=== PATIENT | male | born 1960 | race Caucasian/White ===

== ENCOUNTER 2023-06-20 06:34 | Day surgery (SDC) | payer OTHER ==
[2023-06-14 16:00] LABS: BASOPHILS % (AUTO) 0.4 % (0-1); EOSINOPHILS % (AUTO) 0.3 % (0-6); LYMPHOCYTES # (AUTO) 2.1 X10'3 (1.1-4.8); LYMPHOCYTES % (AUTO) 18.3 % (21-51); MEAN CORPUSCULAR HEMOGLOBIN 28.4 PG (27.0-31.0); MEAN CORPUSCULAR HGB CONC 32.8 g/dL (33.0-36.5); MEAN CORPUSCULAR VOLUME 86.8 FL (78-98); MEAN PLATELET VOLUME 6.9 FL (7.4-10.4); MONOCYTES # (AUTO) 0.8 X10'3 (0-0.9); MONOCYTES % (AUTO) 7.2 % (2-12); NEUTROPHILS # (AUTO) 8.6 X10'3 (1.8-7.7); NEUTROPHILS % (AUTO) 73.8 % (42-75); PRE OP HEMATOCRIT 43.8 % (42.0-52.0); PRE OP HEMOGLOBIN 14.4 g/dL (14.0-17.9); PRE OP PLATELET COUNT 239 X10'3 (140-440); PRE OP WHITE BLOOD COUNT 11.6 10'3 (4.8-10.8); RED BLOOD COUNT 5.05 X10'6 (4.70-6.10)
[2023-06-14 16:31] LABS: ALBUMIN 4.3 G/DL (3.4-5.0); ALBUMIN/GLOBULIN RATIO 1.2 (1.1-1.5); ALKALINE PHOSPHATASE 110 IU/L (46-116); BLOOD UREA NITROGEN 17 MG/DL (7-18); BUN/CREATININE RATIO 13.5 (10.0-20.0); CALCIUM 9.4 MG/DL (8.5-10.1); CHLORIDE 102 MMOL/L (99-107); CREATININE 1.26 MG/DL (0.60-1.10); PRE OP ALT 54 U/L (30-65); PRE OP ANION GAP 14 (8-16); PRE OP AST 41 U/L (10-37); PRE OP BILIRUB, TOTAL 0.6 MG/DL (0.0-1.0); PRE OP GLUCOSE 125 MG/DL (70-104); PRE OP POTASSIUM 3.6 MMOL/L (3.4-5.1); PRE OP SODIUM 142 MMOL/L (135-145); TOTAL CARBON DIOXIDE 26.4 MMOL/L (24-32); TOTAL PROTEIN 7.9 G/DL (6.4-8.2); eGFR 58 ML/MIN
[2023-06-20] VITALS (8 sets, daily range): BP systolic 99–127; BP diastolic 54–90; PULSE 72–82; RESP 12–17; TEMP 97.3; O2SAT 93–99
[~2023-06-20] VITALS: Ht 172.7 cm; Wt 83.0 kg
[~2023-06-20 06:34] MED LIST: AMLO2.5T5 PO; ATOR10TA70 PO; LISI20TA28 PO; TRAZ-251 PO; cefazolin 2gm/D5W 100mL 100 ML IV ONE; famotidine 20mg tablet PO ONE; ringers solution, lacted 1,000 ML IV SCH
[2023-06-20] MEDS ORDERED: tamsulosin 0.4mg capsule PO ONE (07:00)
[2023-06-20] MEDS ORDERED: fentaNYL/PF 50MCG/1 ML 2ML syringe ONE (07:50)
[2023-06-20] MEDS ORDERED: midazolam 1 mg/ML 2ml injection ONE ×2 (07:51)
[2023-06-20] MEDS ORDERED: LIDOcaine 1% 30ml preserv. free vial ONE (07:58)
[2023-06-20] MEDS ORDERED: BUPIVAcaine/PF 2.5mg/ml (0.25%) 10ml vial ONE (07:58)
[2023-06-20] MEDS ORDERED: proCHLORperazine 10 MG/2 ml inj IV PRN (08:00)
[2023-06-20] MEDS ORDERED: meperidine/PF 25mg/ml syringe IV PRN ×3 (08:00)
[2023-06-20] MEDS ORDERED: ringers solution, lacted 1,000 ML IV SCH (08:00)
[2023-06-20] MEDS ORDERED: morphine 4 MG/ML inj SYRINge IV PRN (08:00)
[2023-06-20] MEDS ORDERED: ondansetron/PF 4mg/2ml inj IV PRN (08:00)
[2023-06-20] MEDS ORDERED: morphine 2 MG/ML inj. syringe IV PRN (08:00)
[2023-06-20] MEDS ORDERED: propofol inj 20 ML IV ONE (08:10)
[2023-06-20] MEDS ORDERED: sevoflurane 250ml liquid IH ONE (08:11)
[2023-06-20] MEDS ORDERED: rocuronium 10mg/ml inj IV ONE (08:12)
[2023-06-20] MEDS ORDERED: dexamethasone sod phosphate 4mg/ml inj. ONE (08:14)
[2023-06-20] MEDS ORDERED: LIDOcaine 1% 30ml preserv. free vial IJ ONE (09:03)
[2023-06-20] MEDS ORDERED: BUPIVAcaine/PF 2.5mg/ml (0.25%) 10ml vial IJ ONE (09:03)
[2023-06-20] MEDS ORDERED: ondansetron/PF 4mg/2ml inj ONE (09:40)
[2023-06-20] MEDS ORDERED: acetaminophen 1,000mg/100ml IV 100 ML IV ONE (09:41)
[2023-06-20] MEDS ORDERED: sugammadex 200mg/2ml injection IV ONE (09:49)
[2023-06-20] MEDS ORDERED: HYDROcodone/acetaminophen 5mg/325mg tablet PO PRN (10:20)
== END 2023-06-20 11:02 | disposition home or self-care (01) ==
LOC: PAS 06:34
PROVIDERS: ATTEND Surgery
DX: K40.20 Bilateral inguinal hernia, without obstruction or gangrene, not specified as recurrent (principal); K42.9 Umbilical hernia without obstruction or gangrene; D17.6 Benign lipomatous neoplasm of spermatic cord; I10 Essential (primary) hypertension; E78.5 Hyperlipidemia, unspecified; Z72.89 Other problems related to lifestyle; Z79.899 Other long term (current) drug therapy; Z98.890 Other specified postprocedural states
CPT/HCPCS: 36415; 49591; 49650; 80053; 82948; 85025; 93005; C1781; J0131; J0690; J1100; J2250; J2405; J2704; J3010; J3490; J7030; J7120; S2900; Z7506; Z7508; Z7512; A4215; A4618

== ENCOUNTER 2024-03-27 08:22 | Outpatient (CLI) | payer BC ==
[~2024-03-27 08:22] MED LIST changes: -cefazolin 2gm/D5W 100mL 100 ML IV ONE; -famotidine 20mg tablet PO ONE; -ringers solution, lacted 1,000 ML IV SCH
[2024-03-27 09:05] LABS: BASOPHILS % (AUTO) 0.7 % (0-1); EOSINOPHILS # (AUTO) 0.1 X10'3 (0-0.9); EOSINOPHILS % (AUTO) 2.3 % (0-6); HEMATOCRIT 41.4 % (42.0-52.0); HEMOGLOBIN 13.4 g/dl (14.0-17.9); LYMPHOCYTES # (AUTO) 1.8 X10'3 (1.1-4.8); LYMPHOCYTES % (AUTO) 27.6 % (21-51); MEAN CORPUSCULAR HEMOGLOBIN 29.1 PG (27.0-31.0); MEAN CORPUSCULAR HGB CONC 32.3 g/dL (33.0-36.5); MEAN CORPUSCULAR VOLUME 90.1 FL (78-98); MEAN PLATELET VOLUME 7.1 FL (7.4-10.4); MONOCYTES # (AUTO) 0.4 X10'3 (0-0.9); MONOCYTES % (AUTO) 6.1 % (2-12); NEUTROPHILS # (AUTO) 4.1 X10'3 (1.8-7.7); NEUTROPHILS % (AUTO) 63.3 % (42-75); PLATELET COUNT 244 X10'3 (140-440); RED CELL DISTRIBUTION WIDTH 13.7 % (11.5-14.5); WHITE BLOOD COUNT 6.5 X10'3 (4.5-11.0)
[2024-03-27 09:32] LABS: ALANINE AMINOTRANSFERASE 55 U/L (12-78); ALBUMIN 3.6 G/DL (3.4-5.0); ALBUMIN/GLOBULIN RATIO 1.2 (1.1-1.5); ALKALINE PHOSPHATASE 107 IU/L (46-116); ASPARTATE AMINO TRANSFERASE 38 U/L (10-37); BILIRUBIN,TOTAL 0.4 MG/DL (0.1-1.0); BLOOD UREA NITROGEN 11 MG/DL (7-18); BUN/CREATININE RATIO 11.1 (10.0-20.0); CALCIUM 8.7 MG/DL (8.5-10.1); CHOL/HDL RATIO 3.2 (0.00-4.99); CHOLESTEROL 203 MG/DL (0-200); CREATININE 0.99 MG/DL (0.60-1.10); GLUCOSE 117 MG/DL (70-104); HDL CHOLESTEROL 64 MG/DL (35-60); LDL CHOLESTEROL 102 MG/DL (50-100); TOTAL CARBON DIOXIDE 27.1 MMOL/L (24-32); TOTAL PROTEIN 6.7 G/DL (6.4-8.2); TRIGLYCERIDES 176 MG/DL (20-135); eGFR 77 ML/MIN
[2024-03-27] MEDS ORDERED: iohexol 300mg/ml 100ml inj. ONE (09:45)
[2024-03-27 10:32] LABS: SODIUM 141 MMOL/L (135-145)
[2024-03-27 10:34] LABS: ANION GAP 8 (8-16); CHLORIDE 106 MMOL/L (99-107)
== END 2024-03-27 23:59 | disposition home or self-care (01) ==
LOC: RAD 08:22
PROVIDERS: ATTEND Physician Assistant
DX: K76.89 Other specified diseases of liver (principal); E78.5 Hyperlipidemia, unspecified; K21.9 Gastro-esophageal reflux disease without esophagitis
CPT/HCPCS: 36415; 74178; 80053; 80061; 85025; Q9967